=== PATIENT | male | born 1970 | race Caucasian/White ===

== ENCOUNTER → 2021-10-19 | Outpatient (CLI) | payer OTHER ==
[~2021-10-19] MED LIST: FLOMAX 0.4 MG0.4 MG PO; LEVEMIR FL100 UNIT/1 SQ; LIPITOR TAB 1010 MG PO; LISINOPRIL20 MG PO; METFORMIN HCL500 MG PO; MULTI-VITAMIN1 EACH PO; NEURONTIN800 MG PO; NOVOLOG FL100 UNIT/1 INJ; OXYCODONE HCL30 MG PO; TRAZODONE HCL50 MG PO
[2021-10-19 13:41] LABS: HEMOGLOBIN 12.5 gm/dl (14.0-17.5); RED BLOOD COUNT 3.8 M/UL (4.20-5.50); WHITE BLOOD COUNT 4.1 K/UL (4.5-11.0)
[2021-10-19 14:18] LABS: BUN/CREATININE RATIO 9 (0-10)
[2021-10-20 06:12] LABS: HEMOGLOBIN A1C 7.8 % (4.8-5.6)
== END ==
LOC: OPSV2 12:30
PROVIDERS: Orthopaedic Surgery
DX: Z01.812 Encounter for preprocedural laboratory examination (principal); M75.01 Adhesive capsulitis of right shoulder
CPT/HCPCS: 80048; 83036; 85025

== ENCOUNTER → 2021-10-21 | Day surgery (SDC) | payer OTHER | END | disposition home or self-care (01) | LOC: OR 05:35 | DX: M75.01 Adhesive capsulitis of right shoulder (principal); I10 Essential (primary) hypertension; E78.5 Hyperlipidemia, unspecified; E11.9 Type 2 diabetes mellitus without complications | CPT/HCPCS: 73030; 76000; 82962; J1170; J1885; J2001; J2250; J2274; J2704; J3010; J3301 ==